=== PATIENT | male | born 1975 | race Caucasian/White ===

== ENCOUNTER → 2021-09-11 | Outpatient (REF) | payer BC ==
[2021-09-11 15:48] LABS: APPEARANCE, URINE CLEAR (CLEAR); BACTERIA, URINE AUTO NEGATIVE (NEGATIVE); BILIRUBIN, URINE AUTO NEGATIVE (NEGATIVE); BLOOD, URINE BLOOD 2+ (NEGATIVE); COLOR, URINE STRAW (YELLOW); GLUCOSE, URINE (UA) AUTO NEGATIVE (NEGATIVE); KETONE, URINE AUTO NEGATIVE (NEGATIVE); LEUKOCYTE ESTERASE, URINE AUTO NEGATIVE (NEGATIVE); MUCUS, URINE SMALL (NEGATIVE); NITRITE, URINE AUTO NEGATIVE (NEGATIVE); PROTEIN, URINE AUTO NEGATIVE (NEGATIVE); RBC, URINE AUTO 0 /HPF (0-3); SPECIFIC GRAVITY URINE AUTO 1.003 (1.002-1.035); SQUAMOUS EPITHELIAL CELL UR AU 0 /HPF (0-6); UROBILINOGEN, URINE AUTO 0.2 mg/dL (0.0-2.0); WBC, URINE AUTO 0 /HPF (0-3)
== END ==
LOC: M SMT 15:14
PROVIDERS: ATTEND Urology
DX: N20.1 Calculus of ureter (principal)

== ENCOUNTER → 2021-10-16 | Outpatient (CLI) | payer BC | LOC: M LABSMTC 12:41 | PROVIDERS: ATTEND Anesthesiology | DX: Z01.812 Encounter for preprocedural laboratory examination (principal); Z20.822 Contact with and (suspected) exposure to COVID-19 ==

== ENCOUNTER 2021-10-21 08:11 | Day surgery (SDC) | payer BC ==
[~2021-10-21] VITALS: Ht 175.3 cm; Wt 67.6 kg
[~2021-10-21 08:11] MED LIST: ATEN25TA; CETI10CH PO; CIPROFLOXACIN 400 MG in IV 1 EA IV ONE; DULE100A; LIDOCAINE 1% MDV 20ML VIAL SQ PRN; LR 1,000 ML IV ONE; MONT10TA97; OMEP-173
[2021-10-21] MEDS ORDERED: MIDAZOLAM INJ 2MG/2ML VIAL (J2250 PER 1MG) As Ordered ONE (09:38)
[2021-10-21] MEDS ORDERED: LIDOCAINE 2% 100MG/5ML SDV (FOR ANES.) As Ordered ONE (09:38)
[2021-10-21] MEDS ORDERED: propofoL 200 MG/20 ML VIAL As Ordered ONE ×2 (09:38→09:39)
[2021-10-21] MEDS ORDERED: fentaNYL 100 MCG/2 ML INJECTION As Ordered ONE (09:38)
[2021-10-21] MEDS ORDERED: CONRAY-60 60% 50ML VIAL (Q9961) As Ordered ONE (10:14)
[2021-10-21] MEDS ORDERED: ONDANSETRON 4MG/2ML VIAL As Ordered ONE (10:38)
[2021-10-21] MEDS ORDERED: dexameTHASONE 4 MG/ML 1ML VIAL (J1100 PER 1MG) As Ordered ONE (10:39)
[2021-10-21] MEDS ORDERED: ACETAMINOPHEN 1000MG 100ML IV BTL (OFIRMEV) (J0131 PER 10MG) As Ordered ONE (10:55)
[2021-10-21] MEDS ORDERED: HYDR-3713 PO (11:32)
[2021-10-21] MEDS ORDERED: OXYB5TAB10 PO (11:32)
[2021-10-21] MEDS ORDERED: BACT800T5 PO (11:32)
[2021-10-21] MEDS ORDERED: PYRI1TAB5 PO (11:32)
[2021-10-21] MEDS ORDERED: oxyCODONE 5MG TAB PO PRN (11:35)
[2021-10-21] MEDS ORDERED: LR 1,000 ML IV SCH (11:35)
[2021-10-21] MEDS ORDERED: ONDANSETRON 4MG/2ML VIAL IV PRN (11:35)
[2021-10-21] MEDS ORDERED: fentaNYL 100 MCG/2 ML INJECTION IV PRN (11:35)
[2021-10-21 12:50] VITALS: BP 156/83
== END 2021-10-21 13:05 | disposition home or self-care (01) ==
LOC: M SDC 08:11
PROVIDERS: ATTEND Urology
DX: N20.1 Calculus of ureter (principal); I10 Essential (primary) hypertension; J44.9 Chronic obstructive pulmonary disease, unspecified; J45.909 Unspecified asthma, uncomplicated; Z79.899 Other long term (current) drug therapy
CPT/HCPCS: 52356; 74420; 82365; 88300; C1769; C2617; J0131; J0744; J1100; J2250; J2405; J3010; Q9961